=== PATIENT | male | born 1990 | race Caucasian/White ===

== ENCOUNTER 2017-05-29 16:36 | Emergency (ER) | payer OTHER ==
[~2017-05-29] VITALS: Ht 165.1 cm; Wt 64.0 kg
[~2017-05-29 16:36] MED LIST: ALBU6.7H INH; BACT2OIN TOPICAL; BACT800T5 PO; CEPH500T PO; DEPA500T PO; HYDR50TA94 PO; SERO100T PO; ZOLO50TA PO
[2017-05-29 16:50] VITALS: BP 118/72; PULSE 70; RESP 16; TEMP 98.3; O2SAT 99
[2017-05-29 18:26] LABS: AUTOMATED NEUTROPHIL # 6.6 TH/MM3 (1.8-7.7); BASOPHIL % 0.2 % (0.0-2.0); EOSINOPHIL % 0.4 % (0.0-4.0); HEMATOCRIT 43.9 % (39.0-51.0); HEMO FLAGS DIFF FINAL; LYMPHOCYTE # 1.9 TH/MM3 (1.0-4.8); MEAN CELL VOLUME 90.5 FL (80.0-100.0); MEAN CORPUSCULAR HEMOGLOBIN 31.3 PG (27.0-34.0); MEAN CORPUSCULAR HGB CONC 34.6 % (32.0-36.0); MONO % 6.1 % (0.0-8.0); NEUT % 72.3 % (16.0-70.0); PLATELET COUNT 286 TH/MM3 (150-450); RED BLOOD COUNT 4.85 MIL/MM3 (4.50-5.90); RED CELL DISTRIBUTION WIDTH 13.8 % (11.6-17.2); WHITE BLOOD COUNT 9.1 TH/MM3 (4.0-11.0)
[2017-05-29 19:03] LABS: ANION GAP 7 MEQ/L (5-15); AST (GOT) 17 U/L (15-37); BICARBONATE 25.8 MEQ/L (21.0-32.0); BLOOD UREA NITROGEN 6 MG/DL (7-18); CHLORIDE 105 MEQ/L (98-107); GLOMERULAR FILTRATION RATE 82 ML/MIN (>89); POTASSIUM 3.6 MEQ/L (3.5-5.1); SODIUM (NA) 138 MEQ/L (136-145)
[2017-05-29 19:04] LABS: ALT (GPT) 19 U/L (12-78)
[2017-05-29 19:06] LABS: ALKALINE PHOSPHATASE 87 U/L (45-117); TOTAL BILIRUBIN ADULT 0.7 MG/DL (0.2-1.0)
[2017-05-29 19:39] VITALS: BP 122/78; PULSE 63; RESP 18; O2SAT 100
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
[2017-05-29] MEDS: DIVALPROEX DR 500 MG TABEC PO SCH (20:20)
[2017-05-29] MEDS: SERTRALINE HCL 50 MG TAB PO SCH (20:20)
[2017-05-29] MEDS: hydrOXYzine HCL 50 MG TAB PO SCH (20:20)
[2017-05-29] MEDS ORDERED: QUEtiapine FUMARATE 100 MG TAB PO SCH (21:00)
[2017-05-29 23:24] VITALS: BP 113/77; PULSE 70; RESP 18; O2SAT 99
[2017-05-30] MEDS ORDERED: ONDANSETRON ODT 4 MG TAB PO ONE (02:15)
[2017-05-30 03:43] VITALS: BP 103/54; PULSE 90; RESP 15; O2SAT 98
[2017-05-30] MEDS: hydrOXYzine HCL 50 MG TAB PO SCH ×2 (04:00→11:45)
[2017-05-30 07:03] VITALS: BP 98/57; PULSE 73; RESP 15; O2SAT 99
[2017-05-30] MEDS: DIVALPROEX DR 500 MG TABEC PO SCH (10:40)
[2017-05-30] MEDS: SERTRALINE HCL 50 MG TAB PO SCH (10:40)
[2017-05-30 14:25] VITALS: BP 120/70; PULSE 67; RESP 18
--- NOTE | 2017-05-30 16:56 | PD ---
Physical Exam Time Seen by Provider: 16:[address] Paz has evaluated the patient, but just Ratliff act, and cleared the patient for discharge. Data Data Last Documented VS Vital Signs Date Time Temp Pulse Resp B/P (MAP) Pulse Ox O2 Delivery O2 Flow Rate FiO2 05/30/17 07:03 73 15 98/57 (71) 99 05/29/17 23:24 Room Air 05/29/17 16:50 98.3 Orders Orders Complete Blood Count With Diff (05/29/17 17:50) Comprehensive Metabolic Panel (05/29/17 17:50) Psych Screen (05/29/17 17:50) Drug Screen, Random Urine (05/29/17 17:50) Divalproex (Depurvashi Stone) (05/29/17 21:00) Sertraline (Zoloft) (05/29/17 19:45) Quetiapine (Seroquel) (05/29/17 21:00) Hydroxyzine Hcl (Atarax) (05/29/17 19:45) Ondansetron Odt (Zofran Odt) (05/30/17 02:15) Diet Regular Basic (05/30/17 Breakfast) Diet Regular Basic (05/30/17 Lunch) Diet Regular Basic (05/30/17 Dinner) Labs Laboratory Tests Test 05/29/17 17:55 05/29/17 18:15 White Blood Count 9.1 TH/MM3 Red Blood Count 4.85 MIL/MM3 Hemoglobin 15.2 GM/DL Hematocrit 43.9 % Mean Corpuscular Volume 90.5 FL Mean Corpuscular Hemoglobin 31.3 PG Mean Corpuscular Hemoglobin Concent 34.6 % Red Cell Distribution Width 13.8 % Platelet Count 286 TH/MM3 Mean Platelet Volume 7.3 FL Neutrophils (%) (Auto) 72.3 % Lymphocytes (%) (Auto) 21.0 % Monocytes (%) (Auto) 6.1 % Eosinophils (%) (Auto) 0.4 % Basophils (%) (Auto) 0.2 % Neutrophils # (Auto) 6.6 TH/MM3 Lymphocytes # (Auto) 1.9 TH/MM3 Monocytes # (Auto) 0.6 TH/MM3 Eosinophils # (Auto) 0.0 TH/MM3 Basophils # (Auto) 0.0 TH/MM3 CBC Comment DIFF FINAL Differential Comment Blood Urea Nitrogen 6 MG/DL Creatinine 1.07 MG/DL Random Glucose 85 MG/DL Total Protein 7.7 GM/DL Albumin 4.2 GM/DL Calcium Level 9.7 MG/DL Alkaline Phosphatase 87 U/L Aspartate Amino Transf (AST/SGOT) 17 U/L Alanine Aminotransferase (ALT/SGPT) 19 U/L Total Bilirubin 0.7 MG/DL Sodium Level 138 MEQ/L Potassium Level 3.6 MEQ/L Chloride Level 105 MEQ/L Carbon Dioxide Level 25.8 MEQ/L Anion Gap 7 MEQ/L Estimat Glomerular Filtration Rate 82 ML/MIN Urine Opiates Screen NEG Urine Barbiturates Screen NEG Urine Amphetamines Screen NEG Urine Benzodiazepines Screen NEG Urine Cocaine Screen NEG Urine Cannabinoids Screen NEG MDM Supervised Visit with ALBERTO: No Narrative Course Dr. Paz has evaluated the patient, but just Gaudencio juan, and cleared the patient for discharge. Patient contracts safety. Denies suicidal or homicidal ideations. Patient will be provided community resource packet to [facility] for follow-up. Has friends and family for support. Patient is medically cleared for discharge. Diagnosis Primary Impression: Medical clearance for psychiatric admission Additional Impression: Bipolar disorder Qualified Codes: F31.9 - Bipolar disorder, unspecified Referrals: [facility] (Out patient) [facility] Primary Care Physician Psychiatrist Brenda JUAN Behavioral Patient Instructions: Bipolar Disorder (ED), General Instructions Additional Instruction: Contract safety to your self and others Follow-up with psychiatry Follow-up with primary care provider Follow-up with Austen Temple Return to the emergency department immediately with worsening of symptoms Med/Other Pt SpecificInfo: No Change to Meds, No Meds Exist/No RX given Disposition: 01 DISCHARGE HOME Condition: Stable Gifty Nunn May 30, 2017 16:56
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
== END 2017-05-30 17:49 | disposition home or self-care (01) ==
LOC: NEDAMB 16:36 → NEPJ 05-30 17:49
DX: F31.9 Bipolar disorder, unspecified (principal); F43.10 Post-traumatic stress disorder, unspecified; Z79.899 Other long term (current) drug therapy
CPT/HCPCS: 80053; 80307; 85025; 99284